=== PATIENT | male | born 1935 | race Two or more races ===

== ENCOUNTER 2021-03-03 12:08 | Inpatient (IN) | payer BC, MEDICARE ==
[2021-03-03] MEDS ORDERED: SODIUM CHLORIDE 0.9% 1,000 ML IV ONE (12:55)
--- NOTE | 2021-03-03 13:01 | ED ---
Fall HPI - General Source: EMS Mode of arrival: EMS <Mikey Chavis - Last Filed: 03/03/21 14:53> <Paddy Jorge - Last Filed: 03/03/21 17:07> - General Chief Complaint: Fall Stated Complaint: Fall Time Seen by Provider: 03/03/21 12:17 - History of Present Illness Initial Comments: 86-year-old male presents to emergency Department with a chief complaint of a fall. Patient reports incident occurred early this morning when he was attempt ing to get up after he was eating breakfast. Patient reports he stood up, felt lightheaded and went down to the ground injuring his head but denies any loss of consciousness. States she also fell on her right side of his body is complaining of pain in the right hip with limited range of motion in the right leg due to the pain. He denies any numbness or tingling. Patient is also diabetic and had an elevated blood sugar of 400 while in ambulance. (Mikey Chavis) - Related Data Home Medications Medication Instructions Recorded Confirmed Enalapril [Vasotec] 20 mg PO DAILY 03/03/21 03/03/21 Ferrous Sulfate [Feosol] 325 mg PO BID 03/03/21 03/03/21 HYDROcodone/APAP 5-325MG [[place] tab PO Q6H PRN 03/03/21 03/03/21 5-325] Meloxicam [Mobic] 15 mg PO DAILY PRN 03/03/21 03/03/21 Omeprazole 20 mg PO DAILY 03/03/21 03/03/21 Terazosin [Hytrin] 5 mg PO HS 03/03/21 03/03/21 amLODIPine [Norvasc] 5 mg PO DAILY 03/03/21 03/03/21 glipiZIDE [Glucotrol] 5 mg PO AC-BID 03/03/21 03/03/21 traMADol HCL 50 mg PO QID PRN 03/03/21 03/03/21 Allergies Allergy/AdvReac Type Severity Reaction Status Date / Time No Known Allergies Allergy Verified 03/03/21 13:45 Review of Systems ROS Other: All systems not noted in ROS Statement are negative. <Mikey Chavis - Last Filed: 03/03/21 14:53> ROS Other: All systems not noted in ROS Statement are negative. <Paddy Jorge - Last Filed: 03/03/21 17:07> ROS Statement: Those systems with pertinent positive or pertinent negative responses have been documented in the HPI. Past Medical History Past Medical History: Diabetes Mellitus, Hypertension, Rheumatoid Arthritis (RA) History of Any Multi-Drug Resistant Organisms: None Reported Past Surgical History: Appendectomy, Hernia Repair Past Psychological History: No Psychological Hx Reported Smoking Status: Former smoker Past Alcohol Use History: None Reported Past Drug Use History: None Reported <Mikey Chavis - Last Filed: 03/03/21 14:53> General Exam Limitations: no limitations General appearance: alert, in no apparent distress Head exam: Present: atraumatic, normocephalic, normal inspection. Absent: other (Negative Kapadia sign, raccoon eyes, hemotympanum.) Eye exam: Present: normal appearance, PERRL, EOMI Pupils: Present: normal accommodation ENT exam: Present: normal exam, normal oropharynx, mucous membranes dry, TM's normal bilaterally, normal external ear exam Neck exam: Present: normal inspection, full ROM. Absent: tenderness Respiratory exam: Present: normal lung sounds bilaterally. Absent: respiratory distress, wheezes, rales, rhonchi, stridor, chest wall tenderness, accessory muscle use Cardiovascular Exam: Present: regular rate, normal rhythm, normal heart sounds. Absent: systolic murmur GI/Abdominal exam: Present: soft. Absent: distended, tenderness, guarding Extremities exam: Present: normal inspection, tenderness (Right hip t enderness.), normal capillary refill, other (Palpable DP and PT bilaterally). Absent: full ROM (Limited range of motion right hip due to pain), pedal edema, joint swelling, calf tenderness Back exam: Present: normal inspection, full ROM Neurological exam: Present: alert, oriented X3 Psychiatric exam: Present: normal affect, normal mood Skin exam: Present: warm, dry, intact, normal color <Mikey Chavis - Last Filed: 03/03/21 14:53> Course <Paddy Jorge - Last Filed: 03/03/21 17:07> Vital Signs 03/03/21 03/03/21 03/03/21 12:14 13:53 16:13 Temperature 98.1 F Pulse Rate 90 80 78 Respiratory 16 16 16 Rate Blood Pressure 178/99 166/88 187/62 O2 Sat by Pulse 97 94 L 96 Oximetry - Reevaluation(s) Reevaluation #1: 03/03/21 16:46 Case was endorsed to me by practitioner Neri at 3 PM. Computed tomography scan was done. Report available at 1632. 03/03/21 17:07 Patient was reevaluated. Patient and family updated on results and plan. Case was discussed with Dr. Tanner, who will admit covering for orthopedic call. Dr. Vazquez also notified of consultation. (Paddy Jorge) Medical Decision Making - Lab Data Result diagrams: 03/03/21 12:59 03/03/21 12:59 <Mikey Chavis - Last Filed: 03/03/21 14:53> - Lab Data Result diagrams: 03/03/21 12:59 03/03/21 12:59 - Radiology Data Radiology results: report reviewed (Computed tomography scan shows no fracture dislocation of cervical spine. No acute intercranial hemorrhage. Computed tomography scan of the pelvis shows nondisplaced IT fracture right femur. Indeterminate right femoral/inguinal focal fluid collection 6 cm.), image reviewed (Right femur x-ray shows no fracture or dislocation. Question distortion inferior pubic rami in the left.) <Paddy Jorge - Last Filed: 03/03/21 17:07> - Medical Decision Making 86-year-old male presents to the emergency room with a chief complaint of fall. On physical examination, is neurovascularly intact in bilateral lower extremities. However, he has tenderness over the lateral aspect of her right hip with limited range of motion to the area as well. He also has dry mucous membranes leg was suggesting dehydration. Mild anemia with hemoglobin of 11. Elevated BUN of 21. Glucose 274. UA unremarkable. X-ray of the right hip shows no acute findings but radiology was suggesting a pelvic x-ray. Also, clinically the patient is quite tender over the right hip show I would like to obtain a CT. CT department was recommending pelvic CT which would also evaluate the hips as well. At this time, patient care signed off to Dr. Jorge. (Mikey Chavis) Patient reevaluated. Patient and family updated on results and plan. Dr. Watt has been paged for admission covering for orthopedic call. (Paddy Jorge) - Lab Data Lab Results 03/03/21 03/03/21 03/03/21 Range/Units 12:59 12:59 12:59 WBC 11.4 H (3.8-10.6) k/uL RBC 3.56 L (4.30-5.90) m/uL Hgb 11.0 L (13.0-17.5) gm/dL Hct 34.6 L (39.0-53.0) % MCV 97.1 (80.0-100.0) fL MCH 30.9 (25.0-35.0) pg MCHC 31.8 (31.0-37.0) g/dL RDW 13.4 (11.5-15.5) % Plt Count 285 (150-450) k/uL MPV 7.7 Neutrophils % 90 % Lymphocytes % 5 % Monocytes % 4 % Eosinophils % 0 % Basophils % 0 % Neutrophils # 10.3 H (1.3-7.7) k/uL Lymphocytes # 0.6 L (1.0-4.8) k/uL Monocytes # 0.4 (0-1.0) k/uL Eosinophils # 0.0 (0-0.7) k/uL Basophils # 0.0 (0-0.2) k/uL PT 10.5 (9.0-12.0) sec INR 1.0 (<1.2) APTT 25.4 (22.0-30.0) sec Sodium 133 L (137-145) mmol/L Potassium 4.4 (3.5-5.1) mmol/L Chloride 99 (98-107) mmol/L Carbon Dioxide 31 H (22-30) mmol/L Anion Gap 3 mmol/L BUN 23 H (9-20) mg/dL Creatinine 0.61 L (0.66-1.25) mg/dL Est GFR (CKD-EPI)AfAm >90 (>60 ml/min/1.73 sqM) Est GFR (CKD-EPI)NonAf 90 (>60 ml/min/1.73 sqM) Glucose 274 H (74-99) mg/dL Calcium 8.9 (8.4-10.2) mg/dL Total Bilirubin 0.1 L (0.2-1.3) mg/dL AST 21 (17-59) U/L ALT 15 (4-49) U/L Alkaline Phosphatase 105 (38-126) U/L Total Protein 6.5 (6.3-8.2) g/dL Albumin 3.4 L (3.5-5.0) g/dL Urine Color Urine Appearance (Clear) Urine pH (5.0-8.0) Ur Specific [place] (1.001-1.035) Urine Protein (Negative) Urine Glucose (UA) (Negative) Urine Ketones (Negative) Urine Blood (Negative) Urine Nitrite (Negative) Urine Bilirubin (Negative) Urine Urobilinogen (<2.0) mg/dL Ur Leukocyte Esterase (Negative) Acetone, Qual Negative (Negative) 03/03/21 Range/Units 12:59 WBC (3.8-10.6) k/uL RBC (4.30-5.90) m/uL Hgb (13.0-17.5) gm/dL Hct (39.0-53.0) % MCV (80.0-100.0) fL MCH (25.0-35.0) pg MCHC (31.0-37.0) g/dL RDW (11.5-15.5) % Plt Count (150-450) k/uL MPV Neutrophils % % Lymphocytes % % Monocytes % % Eosinophils % % Basophils % % Neutrophils # (1.3-7.7) k/uL Lymphocytes # (1.0-4.8) k/uL Monocytes # (0-1.0) k/uL Eosinophils # (0-0.7) k/uL Basophils # (0-0.2) k/uL PT (9.0-12.0) sec INR (<1.2) APTT (22.0-30.0) sec Sodium (137-145) mmol/L Potassium (3.5-5.1) mmol/L Chloride (98-107) mmol/L Carbon Dioxide (22-30) mmol/L Anion Gap mmol/L BUN (9-20) mg/dL Creatinine (0.66-1.25) mg/dL Est GFR (CKD-EPI)AfAm (>60 ml/min/1.73 sqM) Est GFR (CKD-EPI)NonAf (>60 ml/min/1.73 sqM) Glucose (74-99) mg/dL Calcium (8.4-10.2) mg/dL Total Bilirubin (0.2-1.3) mg/dL AST (17-59) U/L ALT (4-49) U/L Alkaline Phosphatase (38-126) U/L Total Protein (6.3-8.2) g/dL Albumin (3.5-5.0) g/dL Urine Color Yellow Urine Appearance Clear (Clear) Urine pH 6.5 (5.0-8.0) Ur Specific [place] 1.022 (1.001-1.035) Urine Protein Trace H (Negative) Urine Glucose (UA) 4+ H (Negative) Urine Ketones Negative (Negative) Urine Blood Negative (Negative) Urine Nitrite Negative (Negative) Urine Bilirubin Negative (Negative) Urine Urobilinogen <2.0 (<2.0) mg/dL Ur Leukocyte Esterase Negative (Negative) Acetone, Qual (Negative) - EKG Data EKG Comments: Sinus rhythm with PAC Ventricular rate 81, [place] 164 QRS 96, QTC 432. (Mikey Chavis) Disposition Is patient prescribed a controlled substance at d/c from ED?: No Time of Disposition: 14:55 <Mikey Chavis - Last Filed: 03/03/21 14:53> Is patient prescribed a controlled substance at d/c from ED?: No Decision Time: 16:46 <Paddy Jorge - Last Filed: 03/03/21 17:07> Clinical Impression: Fall, Injury of right hip, Dehydration, Intertrochanteric fracture of right femur Disposition: ADMITTED IP TO THIS HOSP Referrals: [facility],Clinic [Primary Care Provider] - 1-2 days
[2021-03-03 13:11] LABS: Appearance,Urine Clear (Clear); Basophils % (A) 0 %; Bilirubin,Urine Negative (Negative); Blood,Urine Negative (Negative); Color,Urine Yellow; Eosinophils % (A) 0 %; Glucose,Urine (UA) 4+ (Negative); HCT 34.6 % (39.0-53.0); Ketones,Urine Negative (Negative); Leukocyte Esterase,Urine Negative (Negative); Lymphocytes # (A) 0.6 k/uL (1.0-4.8); Lymphocytes % (A) 5 %; MCH 30.9 pg (25.0-35.0); MCHC 31.8 g/dL (31.0-37.0); MCV 97.1 fL (80.0-100.0); Mean Platelet Volume 7.7; Monocytes # (A) 0.4 k/uL (0-1.0); Monocytes % (A) 4 %; Neutrophils # (A) 10.3 k/uL (1.3-7.7); Neutrophils % (A) 90 %; Nitrite,Urine Negative (Negative); PH, Urine 6.5 (5.0-8.0); Platelet Count 285 k/uL (150-450); Protein,Urine Trace (Negative); RBC 3.56 m/uL (4.30-5.90); RDW 13.4 % (11.5-15.5); Specific Gravity,Urine 1.022 (1.001-1.035); Urobilinogen,Urine <2.0 mg/dL (<2.0); WBC 11.4 k/uL (3.8-10.6)
[2021-03-03 13:23] LABS: ALT 15 U/L (4-49); AST 21 U/L (17-59); African American GFR (CKD) >90 (>60 ml/min/1.73 sqM); Albumin 3.4 g/dL (3.5-5.0); Alkaline Phosphatase 105 U/L (38-126); Anion Gap 3 mmol/L; Blood Urea Nitrogen 23 mg/dL (9-20); Calcium 8.9 mg/dL (8.4-10.2); Carbon Dioxide 31 mmol/L (22-30); Chloride 99 mmol/L (98-107); Glucose 274 mg/dL (74-99); Non-African American GFR(CKD) 90 (>60 ml/min/1.73 sqM); Partial Thromboplastin Time 25.4 sec (22.0-30.0); Potassium 4.4 mmol/L (3.5-5.1); Prothrombin Time 10.5 sec (9.0-12.0); Sodium 133 mmol/L (137-145); Total Bilirubin 0.1 mg/dL (0.2-1.3); Total Protein 6.5 g/dL (6.3-8.2)
--- NOTE | 2021-03-03 13:43 | XR ---
Right femur HISTORY: Trauma and pain to right hip Frontal and lateral views of the right femur submitted on 5 images Bone mineralization is reduced. There are vascular calcifications present. Marked osteoarthritic prince ges present in the right knee, there is joint space loss, subchondral sclerosis and cystic geode form ation. Indeterminate metallic densities are present within the proximal soft tissues, there are overl manuel artifacts. Question some irregularity to the inferior pubic ramus on the left. IMPRESSION: No fracture or dislocation of the right hip. Question some distortion of the inferior pub ic ramus on the left, consider dedicated pelvis view. Indeterminate soft tissue densities.
[2021-03-03] MEDS ORDERED: MORPHINE SULFATE 2 MG/ML SYRINGE IVP ONE (13:49)
--- NOTE | 2021-03-03 13:52 | CT ---
EXAMINATION TYPE: CT brain mercedes gallegos DATE OF EXAM: 03/03/2021 COMPARISON: None HISTORY: fall CT DLP: 1273.5 mGycm Automated exposure control for dose reduction was used. TECHNIQUE: CT scan of the head and cervical spine are performed without contrast. FINDINGS: There is no acute intracranial hemorrhage, mass effect, or midline shift identified. The ventricles and sulci are within normal limits in size. The globes are intact and the visualized sin uses are clear. Periventricular white matter shows patchy low attenuation. There is cortical atrophy. There are cerebral vascular calcifications. Cervical spine is visualized in its entirety from C1 through upper thoracic levels and demonstrates s atisfactory alignment without evidence of acute fracture or dislocation. Prevertebral soft tissue ap pears within normal limits. The C1-C2 articulation is unremarkable. There is a spinal curvature. Mu ltilevel spondylosis is present. There is loss of disc height greatest at C4-5, C5-6 and C6-7. Multil evel vacuum disc phenomenon present at intervertebral levels. Is multilevel facet arthropathy and fanny ral foraminal encroachment. There is apical pleural thickening, interstitial changes within the lungs IMPRESSION: 1. There is no acute fracture or dislocation evident in the cervical spine. 2. No acute intracranial hemorrhage, mass effect, or midline shift is seen, there is age-related prince ges of atrophy and chronic small vessel ischemia. 3. Additional findings above.
--- NOTE | 2021-03-03 16:32 | CT ---
EXAMINATION TYPE: CT pelvis wo con DATE OF EXAM: 03/03/2021 COMPARISON: Right femur radiograph 03/03/2021 HISTORY: Right hip pain, fall CT DLP: 449.6 mGycm Automated exposure control for dose reduction was used. FINDINGS: There is decreased osseous mineralization. There is a nondisplaced right intertrochanteric fracture d eformity of the right femur. There are degenerative changes of the bilateral hips, left much greater than right. The left hip demonstrates bone on bone contact, sclerotic changes, and large subchondral cysts. Degenerative changes of the spine. Extensive calcified vascular atherosclerotic disease. There is a focal fluid collection of the right femoral region measuring approximately 6.0 x 4.3 x 10.1 cm. No lymphadenopathy. IMPRESSION: 1. NONDISPLACED INTERTROCHANTERIC FRACTURE DEFORMITY OF THE RIGHT FEMUR. 2. DECREASED OSSEOUS MINERALIZATION. 3. DEGENERATIVE CHANGES OF THE BILATERAL HIPS, MARKED ON THE LEFT WITH EXTENSIVE SUBCHONDRAL CYSTS. 4. INDETERMINATE RIGHT FEMORAL/INGUINAL FOCAL FLUID COLLECTION MEASURES 6.0 X 4.3 X 10.1 CM. INITIAL FOLLOW-UP COULD BE PERFORMED WITH RIGHT INGUINAL ULTRASOUND.
[2021-03-03] MEDS ORDERED: NALOXONE 0.4 MG/ML 1 ML VIAL IV PRN (17:07)
[2021-03-03] MEDS ORDERED: HYDROmorphone 1 MG/ML 1 ML SYRINGE IVP PRN (17:07)
[2021-03-03] MEDS ORDERED: KETOROLAC 15 MG/ML 1 ML VIAL IVP PRN (17:27)
[2021-03-03] MEDS ORDERED: ACETAMINOPHEN TAB 325 MG TAB PO PRN (17:29)
[2021-03-03] MEDS ORDERED: LACTULOSE 20 GM/30 ML CUP PO PRN (17:33)
[2021-03-03] MEDS: HYDROmorphone 0.5 MG/0.5 ML SYRINGE IVP PRN ×2 (17:39→21:59)
--- NOTE | 2021-03-03 17:43 | P.CONS ---
History of Present Illness - Reason for Consult Preoperative clearance - History of Present Illness 86-year-old male presents to emergency Department with a chief complaint of a fall. Patient reports incident occurred early this morning when he was attempting to get up after he was eating breakfast. Patient reports he stood up, felt lightheaded and went down to the ground injuring his head but denies a ny loss of consciousness. States she also fell on her right side of his body is complaining of pain in the right hip with limited range of motion in the right leg due to the pain. Patient had a CT of the spine and neck which showed was essentially within normal limits except for some chronic microvascular ischemic changes. Patient had a CT of the pelvis and lower extremities which showed a nondisplaced intertrochanteric fracture the right femur and significant degenerative changes in bilateral hips and there is some indeterminate right femoral inguinal fluid which appears to be hernia. Patient has mild hyponatremia denied any diarrhea usually gets constipated. Patient denied any chest pain denied denied any history of congestive heart failure. For all the patient has a significant murmur in the aortic area. Patient may have electrolysis. Patient had an EKG which showed some nonspecific ST-T wave changes in the lateral leads because of which I'm opting an echocardiogram patient functionality is is bit poor uses wheelchair, walker as well as a came for ablation. Patient does have significant osteoarthritis as well as rheumatoid arthritis. Patient is supposed to see a yarding and folding machine operator as an outpatient. Patient denied any fever chills. Review of Systems REVIEW OF SYSTEMS: CONSTITUTIONAL: No fever, no malaise, no fatigue. HEENT: No recent visual problems or hearing problems. Denied any sore throat. CARDIOVASCULAR: No chest pain, orthopnea, PND, no palpitations, no syncope. PULMONARY: No shortness of breath, no cough, no hemoptysis. GASTROINTESTINAL: No diarrhea, no nausea, no vomiting, no abdominal pain. NEUROLOGICAL: No headaches, no weakness, no numbness. HEMATOLOGICAL: Denies any bleeding or petechiae. GENITOURINARY: Denies any burning micturition, frequency, or urgency. MUSCULOSKELETAL/RHEUMATOLOGICAL: As mentioned in HPI ENDOCRINE: Denies any polyuria or polydipsia. The rest of the 14-point review of systems is negative. Past Medical History Past Medical History: Diabetes Mellitus, Hypertension, Rheumatoid Arthritis (RA) History of Any Multi-Drug Resistant Organisms: None Reported Past Surgical History: Appendectomy, Hernia Repair Past Psychological History: No Psychological Hx Reported Smoking Status: Former smoker Past Alcohol Use History: None Reported Past Drug Use History: None Reported Medications and Allergies Home Medications Medication Instructions Recorded Confirmed Type Enalapril [Vasotec] 20 mg PO DAILY 03/03/21 03/03/21 History Ferrous Sulfate [Feosol] 325 mg PO BID 03/03/21 03/03/21 History HYDROcodone/APAP 5-325MG [[place] 1 tab PO Q6H PRN 03/03/21 03/03/21 History 5-325] Meloxicam [Mobic] 15 mg PO DAILY PRN 03/03/21 03/03/21 History Omeprazole 20 mg PO DAILY 03/03/21 03/03/21 History Terazosin [Hytrin] 5 mg PO HS 03/03/21 03/03/21 History amLODIPine [Norvasc] 5 mg PO DAILY 03/03/21 03/03/21 History glipiZIDE [Glucotrol] 5 mg PO AC-BID 03/03/21 03/03/21 History traMADol HCL 50 mg PO QID PRN 03/03/21 03/03/21 History Allergies Allergy/AdvReac Type Severity Reaction Status Date / Time No Known Allergies Allergy Verified 03/03/21 13:45 Physical Exam Vitals: Vital Signs Temp Pulse Resp BP Pulse Ox 03/03/21 16:13 78 16 187/62 96 03/03/21 13:53 80 16 166/88 94 L 03/03/21 12:14 98.1 F 90 16 178/99 97 Intake and Output 03/03/21 03/03/21 03/03/21 06:59 14:59 22:59 Other: Weight 59.693 kg PHYSICAL EXAMINATION: GENERAL: The patient is alert and oriented x3, not in any acute distress. Well developed, well nourished. HEENT: Pupils are round and equally reacting to light. EOMI. No scleral icterus. No conjunctival pallor. Normocephalic, atraumatic. No pharyngeal erythema. No thyromegaly. CARDIOVASCULAR: S1 and S2 present. No rubs, or gallops. Systolic murmur and aortic area PULMONARY: Chest is clear to auscultation, no wheezing or crackles. ABDOMEN: Soft, nontender, nondistended, normoactive bowel sounds. No palpable organomegaly. MUSCULOSKELETAL: No joint swelling she does have multiple deformities in the small joint in bilateral upper extremity is as well as lower extremity secondary to rheumatoid arthritis EXTREMITIES: No cyanosis, clubbing, or pedal edema. NEUROLOGICAL: Gross neurological examination did not reveal any focal deficits. SKIN: No rashes. Results CBC & Chem 7: 03/03/21 12:59 03/03/21 12:59 Labs: Abnormal Lab Results - Last 24 Hours (Table) 03/03/21 03/03/21 03/03/21 Range/Units 12:59 12:59 12:59 WBC 11.4 H (3.8-10.6) k/uL RBC 3.56 L (4.30-5.90) m/uL Hgb 11.0 L (13.0-17.5) gm/dL Hct 34.6 L (39.0-53.0) % Neutrophils # 10.3 H (1.3-7.7) k/uL Lymphocytes # 0.6 L (1.0-4.8) k/uL Sodium 133 L (137-145) mmol/L Carbon Dioxide 31 H (22-30) mmol/L BUN 23 H (9-20) mg/dL Creatinine 0.61 L (0.66-1.25) mg/dL Glucose 274 H (74-99) mg/dL Total Bilirubin 0.1 L (0.2-1.3) mg/dL Albumin 3.4 L (3.5-5.0) g/dL Urine Protein Trace H (Negative) Urine Glucose (UA) 4+ H (Negative) Assessment and Plan Plan: -Preoperative clearance for nondisplaced right intertrochanteric fracture: Patient is low to intermediate risk for surgery since the surgery improves the functionality patient should go for surgery same thing was informed to the patient. We will obtain an echocardiogram considering that he has a significant murmur and aortic area and some nonspecific ST-T wave changes. We'll consult cardiology for preoperative clearance. -Lightheadedness near-syncope: Secondary to intravascular depletion from, from dehydration patient was started on IV fluids echocardiogram will be obtained as well since he has a significant and systolic murmur. -Hypovolemic hyponatremia IV fluids as mentioned above. There is also competent of pseudohypernatremia from hyperglycemia -Severe rheumatoid arthritis -Osteoarthritis -Type 2 diabetes mellitus with uncontrolled elevated blood sugars patient was started on long-acting insulin as well as siding scale insulin hold off on oral hypoglycemic agents. -DVT prophylaxis with Lovenox
--- NOTE | 2021-03-03 18:16 | US ---
EXAMINATION TYPE: US groin RT DATE OF EXAM: 03/03/2021 COMPARISON: NONE CLINICAL HISTORY: fluid collection ? hernia. fluid collection right groin visualized on recent CT. F all, right hip pain. right femur fracture. history of hernia mesh 2014 mixed area with solid component and small amount of fluid right groin = 11.2 x 5.0 x 6.4cm, no vascul arity or peristalsing noted at this time. no changes with valsalva. IMPRESSION: Complex large inguinal fluid collection not changed in size compared to the CT scan 3 glenda rs ago. No peristalsis seen. This could be a complex synovial cyst arising from the right hip joint.
[2021-03-03] MEDS: INSULIN ASPART (NovoLOG) 100 UNIT/ML VIAL SQ SCH ×2 (18:45→22:01)
--- NOTE | 2021-03-03 21:07 | P.HPOR ---
History of Present Illness H&P Date: 03/03/21 Chief Complaint: Right hip pain This is an 86-year-old gentleman who presents to the emergency department today with complaint of right hip pain. He reportedly went to get up from his chair today and felt dizzy, causing him to fall to the ground. He states that he did hit his head on the floor when he fell. Upon arrival to the emergency department he was evaluated and had CT of the head and neck which showed no acute abnormalities other than age-related vascular changes. CT of the pelvis reveals a nondisplaced intertrochanteric fracture of the right hip. He is admi tted to our service for surgical intervention and care. The patient has history of rheumatoid arthritis and uses a wheeled walker for ambulation. Past Medical History Past Medical History: Diabetes Mellitus, Hypertension, Rheumatoid Arthritis (RA) History of Any Multi-Drug Resistant Organisms: None Reported Past Surgical History: Appendectomy, Hernia Repair Past Psychological History: No Psychological Hx Reported Smoking Status: Former smoker Past Alcohol Use History: None Reported Past Drug Use History: None Reported Medications and Allergies Home Medications Medication Instructions Recorded Confirmed Type Enalapril [Vasotec] 20 mg PO DAILY 03/03/21 03/03/21 History Ferrous Sulfate [Feosol] 325 mg PO BID 03/03/21 03/03/21 History HYDROcodone/APAP 5-325MG [[place] 1 tab PO Q6H PRN 03/03/21 03/03/21 History 5-325] Meloxicam [Mobic] 15 mg PO DAILY PRN 03/03/21 03/03/21 History Omeprazole 20 mg PO DAILY 03/03/21 03/03/21 History Terazosin [Hytrin] 5 mg PO HS 03/03/21 03/03/21 History amLODIPine [Norvasc] 5 mg PO DAILY 03/03/21 03/03/21 History glipiZIDE [Glucotrol] 5 mg PO AC-BID 03/03/21 03/03/21 History traMADol HCL 50 mg PO QID PRN 03/03/21 03/03/21 History Allergies Allergy/AdvReac Type Severity Reaction Status Date / Time No Known Allergies Allergy Verified 03/03/21 13:45 Physical Examination This is a pleasant 78-year-old gentleman in no acute distress. He is alert and oriented 3. Exam of the head and neck reveal no obvious deformity. He has f ull cervical spine motion without difficulty or pain. There is no pain on palpation of the cervical spine or paraspinal musculature. Exam of the upper extremities reveals rheumatoid type deformities to the hand and fingers. He has limited range of motion of the shoulders, elbows and fingers. No traumatic deformities noted. Exam of the lower extremities reveals external rotation to the right leg. 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 He has fairly good foot and ankle motion. Pedal pulse +2/4. Neurovascular status to the lower extremity is intact. Results CT of head and neck reveal no acute bony abnormality or fracture. No radiographic evidence of trauma to the brain. CT of the pelvis reveals a nondisplaced intertrochanteric fracture of the right hip. No other bony abnormality noted. - Labs Labs: Abnormal Lab Results - Last 24 Hours (Table) 03/03/21 03/03/21 03/03/21 Range/Units 12:59 12:59 12:59 WBC 11.4 H (3.8-10.6) k/uL RBC 3.56 L (4.30-5.90) m/uL Hgb 11.0 L (13.0-17.5) gm/dL Hct 34.6 L (39.0-53.0) % Neutrophils # 10.3 H (1.3-7.7) k/uL Lymphocytes # 0.6 L (1.0-4.8) k/uL Sodium 133 L (137-145) mmol/L Carbon Dioxide 31 H (22-30) mmol/L BUN 23 H (9-20) mg/dL Creatinine 0.61 L (0.66-1.25) mg/dL Glucose 274 H (74-99) mg/dL Total Bilirubin 0.1 L (0.2-1.3) mg/dL Albumin 3.4 L (3.5-5.0) g/dL Urine Protein Trace H (Negative) Urine Glucose (UA) 4+ H (Negative) H & H 03/03/21 Range/Units 12:59 Hgb 11.0 L (13.0-17.5) gm/dL Hct 34.6 L (39.0-53.0) % Coagulation 03/03/21 Range/Units 12:59 INR 1.0 (<1.2) Result Diagrams: 03/03/21 12:59 03/03/21 12:59 Assessment and Plan (1) Fall Current Visit: Yes Status: Acute Code(s): W19.XXXA - UNSPECIFIED FALL, INITIAL ENCOUNTER SNOMED Code(s): 3788233 (2) Injury of right hip Current Visit: Yes Status: Acute Code(s): S79.911A - UNSPECIFIED INJURY OF RIGHT HIP, INITIAL ENCOUNTER SNOMED Code(s): 107642154 (3) Intertrochanteric fracture of right femur Current Visit: Yes Status: Acute Code(s): S72.141A - DISPLACED INTERTROCHANTERIC FRACTURE OF RIGHT FEMUR, INIT SNOMED Code(s): 956460541 Plan: The clinical and x-ray findings are discussed with the patient. It is recommen ded he undergo closed reduction with insertion of intertrochanteric nail of the right hip. The procedures discussed with the patient clean the possible risks and outcomes of surgery. He will most likely be a candidate for inpatient rehabilitation postoperatively. We are planning surgery tomorrow if cleared medically and cleared with cardiology.
[2021-03-03 21:47] LABS: Glucose,Whole Blood 202 mg/dL (75-99)
[2021-03-03] MEDS: FAMOTIDINE 20 MG TAB PO SCH (22:01)
[2021-03-03] MEDS: SODIUM CHLORIDE 0.9% 1,000 ML IV SCH ×2 (22:01→22:14)
[2021-03-03] MEDS: INSULIN DETEMIR (LEVEMIR) 100 UNIT/ML SYR SQ SCH (22:01)
[2021-03-03] MEDS: DOXAZOSIN 4 MG TAB PO SCH (22:09)
[2021-03-03] MEDS: amLODIPine 5 MG TAB PO SCH (22:09)
[2021-03-04] MEDS: traMADol 50 MG TAB PO PRN ×2 (01:17→15:57)
[2021-03-04] MEDS: SODIUM CHLORIDE 0.9% 1,000 ML IV SCH ×3 (06:50→16:36)
[2021-03-04 07:36] LABS: Glucose,Whole Blood 147 mg/dL (75-99)
[2021-03-04 07:50] LABS: HCT 31.1 % (39.0-53.0); HGB 10.5 gm/dL (13.0-17.5); MCH 32.4 pg (25.0-35.0); MCHC 33.8 g/dL (31.0-37.0); Mean Platelet Volume 7.3; Platelet Count 235 k/uL (150-450); RBC 3.24 m/uL (4.30-5.90); RDW 13.1 % (11.5-15.5); WBC 6.9 k/uL (3.8-10.6)
[2021-03-04] MEDS: INSULIN ASPART (NovoLOG) 100 UNIT/ML VIAL SQ SCH ×4 (09:48→21:58)
[2021-03-04] MEDS: HYDROmorphone 0.5 MG/0.5 ML SYRINGE IVP PRN ×2 (10:26→22:01)
[2021-03-04] MEDS: ENOXAPARIN 40 MG/0.4 ML SYRINGE SQ SCH ×2 (10:37→12:40)
[2021-03-04] MEDS: amLODIPine 5 MG TAB PO SCH ×2 (10:58→12:40)
[2021-03-04] MEDS: FAMOTIDINE 20 MG TAB PO SCH ×3 (10:58→21:57)
[2021-03-04 11:35] LABS: Anion Gap 4.9 mmol/L (4.00-12.00); BUN/Creat Ratio 26.67 Ratio (12.00-20.00); Calcium 8.4 mg/dL (8.7-10.3); Carbon Dioxide 26.1 mmol/L (21.6-31.8); Non-African American GFR(CKD) 89.8 (60.0-200.0); Potassium 4.4 mmol/L (3.5-5.5)
--- NOTE | 2021-03-04 12:05 | ECHOF ---
Referral Reason:Preoperative clearance MEASUREMENTS -------- HEIGHT: 182.9 cm WEIGHT: 56.7 kg BP: 125/52 RVIDd: 3.4 cm (< 3.3) IVSd: 1.2 cm (0.6 - 1.1) LVIDd: 4.7 cm (3.9 - 5.3) LVPWd: 1.0 cm (0.6 - 1.1) IVSs: 2.0 cm LVIDs: 2.6 cm LVPWs: 1.8 cm LAESV Index (A-L): 49.45 ml/m Ao Diam: 3.3 cm (2.0 - 3.7) AV Cusp: 1.1 cm (1.5 - 2.6) MV EXCURSION: 9.081 mm (> 18.000) MV EF SLOPE: 88 mm/s (70 - 150) EPSS: 2.1 cm MV E Lux: 1.30 m/s MV DecT: 231 ms MV A Lux: 1.11 m/s MV E/A Ratio: 1.17 AV maxP.22 mmHg AV meanP.69 mmHg AR PHT: 471 ms RAP: 5.00 mmHg RVSP: 55.48 mmHg FINDINGS -------- Sinus rhythm. This was a technically adequate study. The left ventricular size is normal. There is mild concentric left ventricular hypertrophy. Overa ll left ventricular systolic function is normal with, an EF between 55 - 60 %. The right ventricle is mildly enlarged. LA is severely dilated >40 ml/m2 The right atrium is mildly enlarged. Interatrial and interventricular septum intact. Trace to mild aortic regurgitation. There is moderate aortic stenosis present. Peak/mean gradient across the Aortic Valve is 45.22mmHg / 23.69mmHg. Severe mitral annular calcification present. Moderate mitral regurgitation is present. Moderate tricuspid regurgitation present. There is moderate to severe pulmonary hypertension. The right ventricular systolic pressure, as measured by Doppler, is 55.48mmHg. Trace/mild (physiologic) pulmonic regurgitation. The aortic root size is normal. Normal inferior vena cava with normal inspiratory collapse consistent with estimated right atrial pre ssure of 5 mmHg. There is no pericardial effusion. CONCLUSIONS -------- 1. The left ventricular size is normal. 2. There is mild concentric left ventricular hypertrophy. 3. Overall left ventricular systolic function is normal with, an EF between 55 - 60 %. 4. The right ventricle is mildly enlarged. 5. LA is severely dilated >40 ml/m2 6. The right atrium is mildly enlarged. 7. Trace to mild aortic regurgitation. 8. There is moderate aortic stenosis present. 9. Peak/mean gradient across the Aortic Valve is 45.22mmHg / 23.69mmHg. 10. Severe mitral annular calcification present. 11. Moderate mitral regurgitation is present. 12. Moderate tricuspid regurgitation present. 13. There is moderate to severe pulmonary hypertension. 14. The right ventricular systolic pressure, as measured by Doppler, is 55.48mmHg. 15. Trace/mild (physiologic) pulmonic regurgitation. CARTRIDGE LOADER: Keri Sutherland RDCS
[2021-03-04 12:09] LABS: Glucose,Whole Blood 162 mg/dL (75-99)
--- NOTE | 2021-03-04 13:31 | P.CRDCN ---
History of Present Illness History of present illness: HISTORY OF PRESENTING ILLNESS This is a pleasant 86-year-old male past medical history significant for hypertension, diabetes mellitus, skin cancer and gastroesophageal reflux disease. He denies prior history of coronary artery disease and does not follow regularly with a field trainer. We have been asked to see in consultation for preoperative evaluation. He presented to the hospital yesterday after suffering a fall at home with verbalized right hip pain. He states he was getting up after eating breakfast and he uses a walker. He was walking to the kitchen when he's became acutely lightheaded and weak and fell. He denies syncope. He had no chest pain or shortness of breath. He states on a regular basis he does not have symptoms of exertional chest pain. At times he feels short of breath with exertion. DIAGNOSTICS EKG reveals sinus mechanism with PACs, poor R-wave progression and nonspecific abnormalities noted in the lateral leads. Echocardiogram obtained reveals preserved LV systolic function with ejection fraction 55-60%, severely dilated left atrium, mildly enlarged right atrium, moderate aortic stenosis with a mean gradient of 23 mmHg, moderate mitral regurgitation, moderate tricuspid regurgitation and moderate to severe pulmonary retention with an RVSP of 55 mmHg. Laboratory reviewed, WBC 6.9, hemoglobin 10.5, platelets 235, sodium 133, potassium 4.4, creatinine 0.6. Current cardiac medications include enalapril 20 mg daily and amlodipine 5 mg daily. REVIEW OF SYSTEMS At the time of my exam: CONSTITUTIONAL: Denies fever or chills. CARDIOVASCULAR: Denies chest pain, shortness of breath, orthopnea, PND or palpitations. RESPIRATORY: Denies cough. GASTROINTESTINAL: Denies abdominal pain, diarrhea, constipation, nausea or vomiting. MUSCULOSKELETAL: Denies myalgias. NEUROLOGIC: Denies numbness, tingling, headacbe or weakness. ENDOCRINE: Denies fatigue, weight change, polydipsia or polyurina. GENITOURINARY: Denies burning, hematuria or urgency with micturation. HEMATOLOGIC: Denies history of anemia or bleeding. PHYSICAL EXAMINATION Blood pressure 134/67 heart rate 72 afebrile and maintaining oxygen saturation on room air. CONSTITUTIONAL: No apparent distress. Frail. HEENT: Head is normocephalic. Pupils are equal, round. Sclerae anicteric. Mucous membranes of the mouth are moist. No JVD. No carotid bruit. CHEST EXAMINATION: Lungs are clear to auscultation. No chest wall tenderness is noted on palpation or with deep breathing. HEART EXAMINATION: Regular rate and rhythm. S1, S2 heard. Systolic ejection murmur at the base, no gallops or rub. ABDOMEN: Soft, nontender. Positive bowel sounds. EXTREMITIES: 2+ peripheral pulses, no lower extremity edema and no calf tenderness. NEUROLOGIC EXAMINATION: Patient is awake, alert and oriented x3. ASSESSMENT Fall, no syncope Right hip fracture Aortic stenosis Mitral regurgitation Hypertension Diabetes mellitus PLAN On exam clinically the patient is euvolemic with no symptoms of acute heart failure or angina. He is high risk to undergo surgical intervention however there is no immediate acute contraindications. Recommend cautious fluid administration and optimal blood pressure control. Thank you kindly for this consultation. Nurse Practitioner note has been reviewed, I agree with a documented findings and plan of care. Patient was seen and examined. Past Medical History Past Medical History: Cancer, Diabetes Mellitus, GERD/Reflux, Hypertension, Rheumatoid Arthritis (RA) Additional Past Medical History / Comment(s): skin cancer removed on right forehead, currently behind both ears. History of Any Multi-Drug Resistant Organisms: None Reported Past Surgical History: Adenoidectomy, Appendectomy, Hernia Repair, Tonsillectomy Additional Past Surgical History / Comment(s): cataract surgery with aspen lens implants Past Anesthesia/Blood Transfusion Reactions: No Reported Reaction Past Psychological History: No Psychological Hx Reported Smoking Status: Former smoker Past Alcohol Use History: None Reported Past Drug Use History: None Reported - Past Family History Son(s) Additional Family Medical History / Comment(s): smoker Brother(s) Family Medical History: Osteoarthritis (OA) Medications and Allergies Home Medications Medication Instructions Recorded Confirmed Type Enalapril [Vasotec] 20 mg PO DAILY 03/03/21 03/03/21 History Ferrous Sulfate [Feosol] 325 mg PO BID 03/03/21 03/03/21 History HYDROcodone/APAP 5-325MG [[place] 1 tab PO Q6H PRN 03/03/21 03/03/21 History 5-325] Meloxicam [Mobic] 15 mg PO DAILY PRN 03/03/21 03/03/21 History Omeprazole 20 mg PO DAILY 03/03/21 03/03/21 History Terazosin [Hytrin] 5 mg PO HS 03/03/21 03/03/21 History amLODIPine [Norvasc] 5 mg PO DAILY 03/03/21 03/03/21 History glipiZIDE [Glucotrol] 5 mg PO AC-BID 03/03/21 03/03/21 History traMADol HCL 50 mg PO QID PRN 03/03/21 03/03/21 History Allergies Allergy/AdvReac Type Severity Reaction Status Date / Time No Known Allergies Allergy Verified 03/03/21 13:45 Physical Exam Vitals: Vital Signs Temp Pulse Pulse Resp BP BP Pulse Ox 03/04/21 05:51 97.9 F 71 16 125/52 95 03/03/21 21:25 74 20 144/65 97 03/03/21 21:21 98.8 F 74 18 158/58 95 03/03/21 17:44 72 16 158/62 99 03/03/21 17:42 75 16 158/68 96 03/03/21 16:13 78 16 187/62 96 03/03/21 13:53 80 16 166/88 94 L 03/03/21 12:14 98.1 F 90 16 178/99 97 Intake and Output 03/03/21 03/04/21 03/04/21 22:59 06:59 14:59 Output Total 300 Balance -300 Output: Urine 300 Other: Voiding Method Urinal Weight 57 kg Results 03/04/21 06:51 03/04/21 06:51 Cardiac Enzymes 03/03/21 Range/Units 12:59 AST 21 (17-59) U/L Coagulation 03/03/21 Range/Units 12:59 PT 10.5 (9.0-12.0) sec APTT 25.4 (22.0-30.0) sec CBC 03/03/21 03/04/21 Range/Units 12:59 06:51 WBC 11.4 H 6.9 (3.8-10.6) k/uL RBC 3.56 L 3.24 L (4.30-5.90) m/uL Hgb 11.0 L 10.5 L (13.0-17.5) gm/dL Hct 34.6 L 31.1 L (39.0-53.0) % Plt Count 285 235 (150-450) k/uL Comprehensive Metabolic Panel 03/03/21 Range/Units 12:59 Sodium 133 L (137-145) mmol/L Potassium 4.4 (3.5-5.1) mmol/L Chloride 99 (98-107) mmol/L Carbon Dioxide 31 H (22-30) mmol/L BUN 23 H (9-20) mg/dL Creatinine 0.61 L (0.66-1.25) mg/dL Glucose 274 H (74-99) mg/dL Calcium 8.9 (8.4-10.2) mg/dL AST 21 (17-59) U/L ALT 15 (4-49) U/L Alkaline Phosphatase 105 (38-126) U/L Total Protein 6.5 (6.3-8.2) g/dL Albumin 3.4 L (3.5-5.0) g/dL Current Medications Generic Name Dose Route Start Last Admin Trade Name Freq PRN Reason Stop Dose Admin Acetaminophen 650 mg 03/03/21 17:29 Acetaminophen Tab 325 Mg Tab PO Q6HR PRN Fever and/ or Mild Pain Amlodipine Besylate 5 mg 03/03/21 17:30 03/03/21 22:09 Amlodipine 5 Mg Tab PO Not Given DAILY MARIUM Doxazosin Mesylate 4 mg 03/03/21 21:00 03/03/21 22:09 Doxazosin 4 Mg Tab PO 4 mg HS MARIUM Administration Enoxaparin Sodium 40 mg 03/04/21 09:00 Enoxaparin 40 Mg/0.4 Ml Syringe SQ DAILY MARIUM Famotidine 20 mg 03/03/21 21:00 03/03/21 22:01 Famotidine 20 Mg Tab PO 20 mg BID MARIUM Administration Hydromorphone HCl 0.5 mg 03/03/21 17:07 03/03/21 21:59 Hydromorphone 0.5 Mg/0.5 Ml Syringe IVP 0.5 mg Q3HR PRN Administration Moderate Pain Sodium Chloride 1,000 mls @ 20 mls/hr 03/03/21 17:15 03/03/21 22:14 Saline 0.9% IV Not Given .Q24H MARIUM Sodium Chloride 1,000 mls @ 100 mls/hr 03/03/21 17:30 03/04/21 06:50 Saline 0.9% IV Not Given .Q10H MARIUM Insulin Aspart 0 unit 03/03/21 17:30 03/03/21 22:01 Insulin Aspart (Novolog) 100 Unit/Ml Vial SQ Not Given ACHS [facility] Protocol Insulin Detemir 10 unit 03/03/21 21:00 03/03/21 22:01 Insulin Detemir (Levemir) 100 Unit/Ml Syr SQ Not Given HS [facility] Ketorolac Tromethamine 15 mg 03/03/21 17:27 Ketorolac 15 Mg/Ml 1 Ml Vial IVP 03/08/21 17:28 Q6HR PRN Pain Lactulose 20 gm 03/03/21 17:33 Lactulose 20 Gm/30 Ml Cup PO BID PRN Constipation Naloxone HCl 0.2 mg 03/03/21 17:07 Naloxone 0.4 Mg/Ml 1 Ml Vial IV Q2M PRN Opioid Reversal Tramadol HCl 50 mg 03/03/21 17:28 03/04/21 01:17 Tramadol 50 Mg Tab PO 50 mg QID PRN Administration Pain Intake and Output 03/03/21 03/04/21 03/04/21 22:59 06:59 14:59 Output Total 300 Balance -300 Output: Urine 300 Other: Voiding Method Urinal Weight 57 kg 03/04/21 06:51 03/03/21 12:59
[2021-03-04 13:48] VITALS: BMI 17.0
--- NOTE | 2021-03-04 16:08 | P.PN ---
Subjective Progress Note Date: 03/04/21 - Reason for Consult Preoperative clearance - History of Present Illness 86-year-old male presents to emergency Department with a chief complaint of a fa ll. Patient reports incident occurred early this morning when he was attempting to get up after he was eating breakfast. Patient reports he stood up, felt lightheaded and went down to the ground injuring his head but denies any loss of consciousness. States she also fell on her right side of his body is complaining of pain in the right hip with limited range of motion in the right leg due to the pain. Patient had a CT of the spine and neck which showed was essentially within normal limits except for some chronic microvascular ischemic changes. Patient had a CT of the pelvis and lower extremities which showed a nondisplaced intertrochanteric fracture the right femur and significant degen erative changes in bilateral hips and there is some indeterminate right femoral inguinal fluid which appears to be hernia. Patient has mild hyponatremia denied any diarrhea usually gets constipated. Patient denied any chest pain denied denied any history of congestive heart failure. For all the patient has a significant murmur in the aortic area. Patient may have electrolysis. Patient had an EKG which showed some nonspecific ST-T wave changes in the lateral leads because of which I'm opting an echocardiogram patient functionality is is bit poor uses wheelchair, walker as well as a came for ablation. Patient does have significant osteoarthritis as well as rheumatoid arthritis. Patient is supposed to see a beef selector as an outpatient. Patient denied any fever chills. 03/04/2021 Patient is seen and evaluated and is awaiting for surgical clearance of the right hip and is being followed closely by orthopedic surgery. Patient was seen and evaluated by cardiology and underwent a 2-D echo showing overall left ventricular systolic function is normal with an EF between 55 and 60% of note the LAD is severely dilated and the right atrium is mildly enlarged with some moderate aortic stenosis present along with moderate mitral and tricuspid regurgitation present along with moderate to severe pulmonary hypertension. Hemoglobin is stable at 10.5, sodium is 133 with a potassium of 4.4 current creatinine is 0.6. Continue Accu-Cheks before meals and at bedtime and continue to monitor blood sugars closely. Patient is tentatively scheduled for surgery in the morning with Dr. Tanner. Review of systems: Constitutional: No reports of fatigue, fever, or chills Cardiovascular: No reports of chest pain or palpitations Respiratory: No reports of shortness of breath or cough GI: No reports of nausea, vomiting, or diarrhea : No reports of dysuria or retention Neurovascular: Reports generalized weakness and continued right hip discomfort All medications have been reviewed Objective - Vital Signs Vital signs: Vital Signs Temp 97.9 F 03/04/21 05:51 Pulse 72 03/04/21 10:46 Resp 16 03/04/21 05:51 BP 134/67 03/04/21 10:46 Pulse Ox 95 03/04/21 05:51 Intake & Output 03/03/21 03/04/21 03/04/21 18:59 06:59 18:59 Output Total 300 Balance -300 Weight 59.693 kg 57 kg 57 kg Output: Urine 300 Other: Voiding Method Urinal - Exam GENERAL: The patient is alert and oriented x3, not in any acute distress. Well developed, well nourished. HEENT: Pupils are round and equally reacting to light. EOMI. No scleral icterus. No conjunctival pallor. Normocephalic, atraumatic. No pharyngeal erythema. No thyromegaly. CARDIOVASCULAR: S1 and S2 present. No rubs, or gallops. Systolic murmur and aortic area PULMONARY: Chest is clear to auscultation, no wheezing or crackles. ABDOMEN: Soft, nontender, nondistended, normoactive bowel sounds. No palpable organomegaly. MUSCULOSKELETAL: No joint swelling patient does have multiple deformities in the small joint in bilateral upper extremity is as well as lower extremity secondary to rheumatoid arthritis EXTREMITIES: No cyanosis, clubbing, or pedal edema. NEUROLOGICAL: Gross neurological examination did not reveal any focal deficits. SKIN: No rashes. - Labs CBC & Chem 7: 03/04/21 06:51 03/04/21 06:51 Labs: Abnormal Lab Results - Last 24 Hours (Table) 03/03/21 03/04/21 03/04/21 Range/Units 21:45 06:51 06:51 RBC 3.24 L (4.30-5.90) m/uL Hgb 10.5 L (13.0-17.5) gm/dL Hct 31.1 L (39.0-53.0) % Sodium 133 L (135-145) mmol/L BUN/Creatinine Ratio 26.67 H (12.00-20.00) Ratio Glucose 159 H (70-110) mg/dL POC Glucose (mg/dL) 202 H (75-99) mg/dL Calcium 8.4 L (8.7-10.3) mg/dL 03/04/21 03/04/21 Range/Units 07:31 12:08 RBC (4.30-5.90) m/uL Hgb (13.0-17.5) gm/dL Hct (39.0-53.0) % Sodium (135-145) mmol/L BUN/Creatinine Ratio (12.00-20.00) Ratio Glucose (70-110) mg/dL POC Glucose (mg/dL) 147 H 162 H (75-99) mg/dL Calcium (8.7-10.3) mg/dL Assessment and Plan Assessment: -Preoperative clearance for non-displaced right intertrochanteric fracture: Patient is low to intermediate risk for surgery since the surgery improves the functionality patient should go for surgery same thing was informed to the patient. Cardiology evaluated the patient and patient underwent 2-D echo as mentioned previously and risks versus benefits were explained to the patient and patient is tentatively scheduled for surgery with Dr. Tanner in the morning. C ardiology will continue to follow. -Lightheadedness near-syncope: Secondary to intravascular depletion from dehydration, IV fluids currently on hold and will monitor closely and also monitor for postop hypotension after surgery -Hypovolemic hyponatremia with a component of pseudohypernatremia from hyperglycemia -Severe rheumatoid arthritis -Osteoarthritis -Type 2 diabetes mellitus with uncontrolled elevated blood sugars patient was started on long-acting insulin as well as siding scale insulin hold off on oral hypoglycemic agents. In October Accu-Cheks before meals and at bedtime -DVT prophylaxis with Lovenox Plan: Patient has been seen and evaluated by cardiology and given his moderate risks benefits versus risks were explained and patient has been cleared medically and will proceed with right hip surgery with Dr. Tanner tomorrow. Will continue to monitor closely and repeat labs along with monitoring vitals and Accu-Cheks. Thank you for this consultation.
[2021-03-04 17:37] LABS: Glucose,Whole Blood 165 mg/dL (75-99)
[2021-03-04 18:30] LABS: Hemoglobin A1C 6.8 % (4.0-6.0)
[2021-03-04 20:27] LABS: Glucose,Whole Blood 142 mg/dL (75-99)
[2021-03-04] MEDS: DOXAZOSIN 4 MG TAB PO SCH (21:57)
[2021-03-04] MEDS: INSULIN DETEMIR (LEVEMIR) 100 UNIT/ML SYR SQ SCH (21:59)
[2021-03-05] MEDS: SODIUM CHLORIDE 0.9% 1,000 ML IV SCH ×4 (03:57→18:07)
[2021-03-05 07:17] LABS: Glucose,Whole Blood 60 mg/dL (75-99)
[2021-03-05] MEDS ORDERED: DEXTROSE 50% SYRINGE 50 ML IVP ONE (07:21)
[2021-03-05 07:44] LABS: Glucose,Whole Blood 174 mg/dL (75-99)
[2021-03-05] MEDS: INSULIN ASPART (NovoLOG) 100 UNIT/ML VIAL SQ SCH ×4 (07:46→21:05)
[2021-03-05] MEDS: ENOXAPARIN 40 MG/0.4 ML SYRINGE SQ SCH (08:10)
[2021-03-05] MEDS: HYDROmorphone 0.5 MG/0.5 ML SYRINGE IVP PRN ×6 (08:12→22:30)
[2021-03-05] MEDS: FAMOTIDINE 20 MG TAB PO SCH ×2 (08:13→20:29)
[2021-03-05] MEDS: amLODIPine 5 MG TAB PO SCH (08:13)
[2021-03-05 12:28] LABS: Glucose,Whole Blood 116 mg/dL (75-99)
[2021-03-05] MEDS ORDERED: ONDANSETRON 4 MG/2 ML VIAL IVP ONE (13:03)
[2021-03-05] MEDS ORDERED: DEXAMETHASONE SOD PHOSPHATE 4 MG/ML 1 ML VIAL IV ONE (13:03)
[2021-03-05 13:22] LABS: Basophils % (A) 1 %; Eosinophils # (A) 0.1 k/uL (0-0.7); Eosinophils % (A) 2 %; HCT 31.6 % (39.0-53.0); HGB 10.6 gm/dL (13.0-17.5); Lymphocytes # (A) 0.7 k/uL (1.0-4.8); Lymphocytes % (A) 11 %; MCHC 33.7 g/dL (31.0-37.0); MCV 97.8 fL (80.0-100.0); Mean Platelet Volume 7.4; Monocytes # (A) 0.5 k/uL (0-1.0); Monocytes % (A) 7 %; Neutrophils # (A) 5.4 k/uL (1.3-7.7); Neutrophils % (A) 79 %; Platelet Count 214 k/uL (150-450); RBC 3.23 m/uL (4.30-5.90); RDW 12.9 % (11.5-15.5); WBC 6.9 k/uL (3.8-10.6)
[2021-03-05 13:33] LABS: African American GFR (CKD) >90 (>60 ml/min/1.73 sqM); Anion Gap 3 mmol/L; Blood Urea Nitrogen 18 mg/dL (9-20); Calcium 8.5 mg/dL (8.4-10.2); Carbon Dioxide 25 mmol/L (22-30); Chloride 105 mmol/L (98-107); Glucose 95 mg/dL (74-99); Non-African American GFR(CKD) >90 (>60 ml/min/1.73 sqM); Potassium 4.2 mmol/L (3.5-5.1); Sodium 133 mmol/L (137-145)
[2021-03-05] MEDS ORDERED: ROCURONIUM 10 MG/ML (5 ML VIAL) IV ONE (13:39)
[2021-03-05] MEDS ORDERED: GLYCOPYRROLATE 0.2 MG/ML 2 ML VIAL ONE (13:39)
[2021-03-05] MEDS ORDERED: NEOSTIGMINE 1 MG/ML 10 ML VIAL ONE (13:39)
[2021-03-05] MEDS ORDERED: ceFAZolin 1,000 MG VIAL ONE (13:39)
[2021-03-05] MEDS ORDERED: LIDOCAINE 1% INJ 10MG/ML (20 ML MDV) ONE (13:39)
[2021-03-05] MEDS ORDERED: SUCCINYLCHOLINE CHLORIDE 100 MG/5 ML SYR IV ONE (13:39)
[2021-03-05] MEDS ORDERED: fentaNYL (PF) 50 MCG/ML 2 ML AMP ONE (13:39)
[2021-03-05] MEDS ORDERED: SODIUM CHLORIDE 0.9% 100 ML BAG ONE (13:39)
[2021-03-05] MEDS ORDERED: ETOMIDATE 2 MG/ML 10 ML VIAL ONE (13:39)
[2021-03-05] MEDS: LACTATED RINGERS 1,000 ML IV SCH ×2 (13:40→16:11)
--- NOTE | 2021-03-05 14:15 | P.PN ---
Subjective 86-year-old male presents to emergency Department with a chief complaint of a fall. Patient reports incident occurred early this morning when he was attempting to get up after he was eating breakfast. Patient reports he stood up, felt lightheaded and went down to the ground injuring his head but denies any loss of consciousness. States she also fell on her right side of his body is complaining of pain in the right hip with limited range of motion in the right leg due to the pain. Patient had a CT of the spine and neck which showed was essentially within normal limits except for some chronic microvascular ischemic changes. Patient had a CT of the pelvis and lower extremities which showed a nondisplaced intertrochanteric fracture the right femur and significant degenerative changes in bilateral hips and there is some indeterminate right femoral inguinal fluid which appears to be hernia. Patient has mild hyponatremia denied any diarrhea usually gets constipated. Patient denied any chest pain denied denied any history of congestive heart failure. For all the patient has a significant murmur in the aortic area. Patient may have electrolysis. Patient had an EKG which showed some nonspecific ST-T wave changes in the lateral leads because of which I'm opting an echocardiogram patient functionality is is bit poor uses wheelchair, walker as well as a came for ablation. Patient does have significant osteoarthritis as well as rheumatoid arthritis. Patient is supposed to see a industry operations investigator as an outpatient. Patient denied any fever chills. 03/04/2021 Patient is seen and evaluated and is awaiting for surgical clearance of the right hip and is being followed closely by orthopedic surgery. Patient was seen and evaluated by cardiology and underwent a 2-D echo showing overall left ventricular systolic function is normal with an EF between 55 and 60% of note the LAD is severely dilated and the right atrium is mildly enlarged with some moderate aortic stenosis present along with moderate mitral and tricuspid regurgitation present along with moderate to severe pulmonary hypertension. Hemoglobin is stable at 10.5, sodium is 133 with a potassium of 4.4 current creatinine is 0.6. Continue Accu-Cheks before meals and at bedtime and continue to monitor blood sugars closely. Patient is tentatively scheduled for surgery in the morning with Dr. Tanner. 03/05/2021 Patient will undergo surgical intervention and intramedullary nailing today. Constitutional: Denied any fatigue denied any fever. Cardio vascular: denied any chest pain, palpitations Gastrointestinal denied any nausea vomiting Pulmonary: Denied any shortness of breath cough Neurologic denied any new focal deficits All inpatient medications were reviewed and appropriate changes in these medications as dictated in the interval history and assessment and plan. Objective - Vital Signs Vital signs: Vital Signs Temp 97.0 F L 03/05/21 13:23 Pulse 98 03/05/21 13:23 Resp 16 03/05/21 13:23 BP 102/75 03/05/21 13:23 Pulse Ox 98 03/05/21 13:23 Intake & Output 03/04/21 03/05/21 03/05/21 18:59 06:59 18:59 Intake Total 360 400 50 Output Total 300 Balance 360 100 50 Weight 57 kg Intake: IV 50 Oral 360 400 Output: Urine 300 Other: Voiding Method Urinal Urinal # Voids 1 - Exam GENERAL: The patient is alert and oriented x3, not in any acute distress. Well developed, well nourished. HEENT: Pupils are round and equally reacting to light. EOMI. No scleral icterus. No conjunctival pallor. Normocephalic, atraumatic. No pharyngeal erythema. No thyromegaly. CARDIOVASCULAR: S1 and S2 present. No rubs, or gallops. Systolic murmur and aortic area PULMONARY: Chest is clear to auscultation, no wheezing or crackles. ABDOMEN: Soft, nontender, nondistended, normoactive bowel sounds. No palpable organomegaly. MUSCULOSKELETAL: No joint swelling patient does have multiple deformities in the small joint in bilateral upper extremity is as well as lower extremity secondary to rheumatoid arthritis EXTREMITIES: No cyanosis, clubbing, or pedal edema. NEUROLOGICAL: Gross neurological examination did not reveal any focal deficits. SKIN: No rashes. - Labs CBC & Chem 7: 03/05/21 12:51 03/05/21 12:51 Labs: Abnormal Lab Results - Last 24 Hours (Table) 03/04/21 03/04/21 03/04/21 Range/Units 06:51 17:31 20:26 RBC (4.30-5.90) m/uL Hgb (13.0-17.5) gm/dL Hct (39.0-53.0) % Lymphocytes # (1.0-4.8) k/uL Sodium (137-145) mmol/L Creatinine (0.66-1.25) mg/dL POC Glucose (mg/dL) 165 H 142 H (75-99) mg/dL Hemoglobin A1c 6.8 H (4.0-6.0) % 03/05/21 03/05/21 03/05/21 Range/Units 07:15 07:41 12:11 RBC (4.30-5.90) m/uL Hgb (13.0-17.5) gm/dL Hct (39.0-53.0) % Lymphocytes # (1.0-4.8) k/uL Sodium (137-145) mmol/L Creatinine (0.66-1.25) mg/dL POC Glucose (mg/dL) 60 L 174 H 116 H (75-99) mg/dL Hemoglobin A1c (4.0-6.0) % 03/05/21 03/05/21 Range/Units 12:51 12:51 RBC 3.23 L (4.30-5.90) m/uL Hgb 10.6 L (13.0-17.5) gm/dL Hct 31.6 L (39.0-53.0) % Lymphocytes # 0.7 L (1.0-4.8) k/uL Sodium 133 L (137-145) mmol/L Creatinine 0.43 L (0.66-1.25) mg/dL POC Glucose (mg/dL) (75-99) mg/dL Hemoglobin A1c (4.0-6.0) % Assessment and Plan Plan: -non-displaced right intertrochanteric fracture: Patient is intermediate risk for surgery since the surgery improves the functionality patient should go for surgery same thing was informed to the patient. Patient has moderate aortic stenosis and moderate pulmonary hypertension. -Lightheadedness near-syncope: Secondary to intravascular depletion from dehydration, IV fluids currently on hold and will monitor closely and also monitor for postop hypotension after surgery. Patient's Norvasc dyspnea patient blood pressure is low today -Hypovolemic hyponatremia with a component of pseudohypernatremia from hyperglycemia, patient's sodium remained at 132 with the blood sugars improved at this time. -Severe rheumatoid arthritis -Osteoarthritis -Type 2 diabetes mellitus with uncontrolled elevated blood sugars patient was started on long-acting insulin as well as siding scale insulin hold off on oral hypoglycemic agents. -DVT prophylaxis with Lovenox
[2021-03-05] MEDS ORDERED: ceFAZolin 1,000 MG in SODIUM CHLORIDE 0.9% 1,000 ML IRRIGATION ONE (14:21)
--- NOTE | 2021-03-05 15:13 | P.OP ---
Date of Procedure: 03/05/21 Procedure(s) Performed: PREOPERATIVE DIAGNOSIS: Right hip intertrochanteric fracture. POSTOPERATIVE DIAGNOSIS: Right hip intertrochanteric fracture. OPERATION: Right hip intertrochanteric fracture closed reduction and intramedullary nailing using Synthes IT nail. VENDING MACHINE COIN COLLECTOR: None ANESTHESIA: Gen. ESTIMATED BLOOD LOSS: 100 mL. COMPLICATIONS: None OPERATIVE FINDINGS: See dictation INDICATIONS: Mr. Gamboa is an 86-year-old male with a history of right intertrochanteric fracture. The patient has aortic stenosis which prevents him from being a candidate for spinal anesthetic. The patient presents to the operating room today for closed reduction and intramedullary nailing. I discussed the risks of surgery in detail with him and his daughter as being inclusive of but not limited to: Bleeding, infection, scarring, discomfort, blood vessel and/or nerve damage, need for further surgery, malunion, nonunion, gait disturbance including persistent or permanent limp, limb length inequality, arthritis, hardware failure, blood clot, pulmonary embolism, , and other risks. The consent form has been signed. PROCEDURE: After appropriate consent was obtained, the patient was taken to the operating room and placed in supine position. General anesthetic was administered and after confirmation of adequate anesthesia, the patient was carefully placed in the supine position on the operating room table in the fracture table. The patient was placed up against a well-padded peroneal post. Care was taken to make sure about that all pressure points were adequately padded. The affected leg was placed in boot traction and the unaffected leg was placed in a well leg nugent. Using gentle longitudinal distraction as well as adduction and internal rotation, the fracture was reduced as assessed by AP and lateral C-arm imaging. Once a satisfactory reduction had been obtained, the thigh was prepped and draped in the usual aseptic fashion using ChloraPrep. Ioban drape was used for the case and the patient received intravenous antibiotics prior to incision. Timeout was called, confirming patient identity, side, procedure, and administration of antibiotics. The incision was then created with a #10 blade just proximal to the greater trochanter laterally. It was carried down through skin into the subcutaneous tissues and through fascia. Hemostasis was obtained using electrocautery. The tip of the greater trochanter was palpated and a guide pin was placed at the tip and directed into the femoral shaft as assessed with C-arm imaging. Once optimal pin position had been obtained, a 17 mm reamer was used over the guide pin to create a path for the IT nail. IT nail selected was assembled to the insertion jig on the back table and bushings were checked for accuracy. The nail was then inserted using gentle mallet taps until it was fully deployed. The amount of rotation of the implant was assessed based on the amount of anteversion of the femoral neck. This was rotated to match the patient's femoral neck anteversion and the helical blade guide was placed through the insertion jig and through an incision on the lateral side of the thigh more distal than the first. Once this guide was placed against the lateral cortex of the femur, a guide pin was drilled into the central region of the femoral head and neck as based on AP and lateral C-arm imaging. Once optimal pin position had been obtained, the guidewire was measured and appropriately sized helical blade was selected. The path for the helical blade was prepared using a tapered reamer. The helical blade was then inserted using gentle mallet taps along the guidewire until it was fully deployed. There was no displacement of the fracture during this step. The anti-rotation screw was locked down and the insertion apparatus for the helical blade was removed. The guide pin was then removed. Traction was then removed from the leg and the distal interlock was placed through the jig using standard technique. Finally, the insertion jig for the nail was removed and final C-arm images were taken and saved in both AP and lateral planes. The final x-rays showed satisfactory positioning of the implant and good reduction of the fracture. The top of the nail was plugged with a small quantity of bone wax and the incisions were then thoroughly irrigated with normal saline. Final hemostasis was obtained using electrocautery and closure of the fascia was performed using 0-Vicryl suture. 2-0 Vicryl suture was used in the subcutaneous tissues and standard skin closure was performed. Sterile dressing was then applied and the patient was carefully removed from the fracture table frame and placed onto the stretcher. The patient tolerated the procedure well. There were no complications and above noted blood loss. The patient was then subsequently transferred to recovery room in stable condition. Sponge and needle counts were correct.
--- NOTE | 2021-03-05 15:16 | XR ---
EXAMINATION TYPE: XR Hip Complete RT, FL guidance operating room DATE OF EXAM: 03/05/2021 COMPARISON: NONE HISTORY: Fracture Fluoroscopy support supplied to the referring clinician. See dictated report from orthopedic surgery , 55 seconds fluoroscopy time supplied to the referring clinician, 2 intraoperative C-arm images docu ment the procedure
[2021-03-05] MEDS ORDERED: NALOXONE 0.4 MG/ML 1 ML VIAL IV PRN (15:29)
[2021-03-05] MEDS ORDERED: HYDROmorphone 0.5 MG/0.5 ML SYRINGE IVP PRN ×2 (15:29)
[2021-03-05] MEDS ORDERED: HYDROcodone/APAP 5-325MG 1 EACH TAB PO PRN (15:29)
[2021-03-05] MEDS ORDERED: MAGNESIUM HYDROXIDE 2,400 MG/10 ML CUP PO PRN (15:29)
[2021-03-05 16:34] LABS: Basophils # (A) 0.1 k/uL (0-0.2); Basophils % (A) 1 %; Eosinophils # (A) 0.2 k/uL (0-0.7); Eosinophils % (A) 1 %; HCT 33.7 % (39.0-53.0); HGB 11.5 gm/dL (13.0-17.5); Lymphocytes # (A) 0.4 k/uL (1.0-4.8); Lymphocytes % (A) 3 %; MCH 33.2 pg (25.0-35.0); MCV 97.8 fL (80.0-100.0); Mean Platelet Volume 7.4; Monocytes # (A) 0.4 k/uL (0-1.0); Monocytes % (A) 3 %; Neutrophils # (A) 12.8 k/uL (1.3-7.7); Neutrophils % (A) 92 %; Platelet Count 212 k/uL (150-450); RBC 3.45 m/uL (4.30-5.90); RDW 12.9 % (11.5-15.5)
[2021-03-05 17:06] LABS: Glucose,Whole Blood 127 mg/dL (75-99)
[2021-03-05] MEDS: ASPIRIN 81 MG PO SCH (20:28)
[2021-03-05] MEDS: SENNOSIDES-DOCUSATE SODIUM 1 EACH TAB PO SCH (20:28)
[2021-03-05] MEDS: DOXAZOSIN 4 MG TAB PO SCH (20:29)
[2021-03-05 20:51] LABS: Glucose,Whole Blood 158 mg/dL (75-99)
[2021-03-06] MEDS: HYDROmorphone 0.5 MG/0.5 ML SYRINGE IVP PRN ×2 (02:08→07:51)
[2021-03-06] MEDS: LACTATED RINGERS 1,000 ML IV SCH ×4 (04:17→20:20)
[2021-03-06 07:17] LABS: Glucose,Whole Blood 150 mg/dL (75-99)
[2021-03-06] MEDS: INSULIN ASPART (NovoLOG) 100 UNIT/ML VIAL SQ SCH ×4 (07:49→20:50)
[2021-03-06] MEDS: SODIUM CHLORIDE 0.9% 1,000 ML IV SCH ×4 (07:49→20:53)
[2021-03-06] MEDS: ASPIRIN 81 MG PO SCH ×2 (07:50→20:19)
[2021-03-06] MEDS: ENOXAPARIN 40 MG/0.4 ML SYRINGE SQ SCH (07:50)
[2021-03-06] MEDS: FAMOTIDINE 20 MG TAB PO SCH ×2 (07:50→20:50)
--- NOTE | 2021-03-06 08:56 | P.PN ---
Subjective Progress Note Date: 03/06/21 Principal diagnosis: Intertrochanteric fracture right hip. Status post closed reduction insertion intertrochanteric nail right hip. This is an 86-year-old male who is postoperative day #1 status post close reduction with insertion intertrochanteric nail of the right hip. He is stable from an orthopedic standpoint. He has no new complaints or concerns today. Vital signs are stable. Objective - Vital Signs Vital signs: Vital Signs Temp 98.1 F 03/06/21 05:00 Pulse 63 03/06/21 05:00 Resp 20 03/06/21 05:00 BP 135/62 03/06/21 05:00 Pulse Ox 99 03/06/21 05:00 Intake & Output 03/05/21 03/06/21 03/06/21 18:59 06:59 18:59 Intake Total 601 100 Output Total 100 Balance 501 100 Intake: IV 351 Intake, IV Titration 250 Amount Lactated Ringers 1,000 ml 200 @ 100 mls/hr IV .Q10H [facility] Rx#:[id number] ceFAZolin 2 gm In Sodium 50 Chloride 0.9% 50 ml @ 100 mls/hr IVPB Q8H MARIUM Rx#: [id number] Oral 100 Output: Estimated Blood Loss 100 Other: Voiding Method Urinal # Voids 3 - Exam This is a pleasant 78-year-old male in no acute distress. He is alert and oriented 3. Exam of the right hip reveals that his dressing is clean, dry and intact. He has full foot and ankle motion without difficulty or pain. Neurovascular status to the lower extremity is intact - Labs CBC & Chem 7: 03/05/21 15:51 03/05/21 12:51 Labs: Abnormal Lab Results - Last 24 Hours (Table) 03/05/21 03/05/21 03/05/21 Range/Units 12:11 12:51 12:51 WBC (3.8-10.6) k/uL RBC 3.23 L (4.30-5.90) m/uL Hgb 10.6 L (13.0-17.5) gm/dL Hct 31.6 L (39.0-53.0) % Neutrophils # (1.3-7.7) k/uL Lymphocytes # 0.7 L (1.0-4.8) k/uL Sodium 133 L (137-145) mmol/L Creatinine 0.43 L (0.66-1.25) mg/dL POC Glucose (mg/dL) 116 H (75-99) mg/dL 03/05/21 03/05/21 03/05/21 Range/Units 15:51 17:00 20:50 WBC 14.0 H (3.8-10.6) k/uL RBC 3.45 L (4.30-5.90) m/uL Hgb 11.5 L (13.0-17.5) gm/dL Hct 33.7 L (39.0-53.0) % Neutrophils # 12.8 H (1.3-7.7) k/uL Lymphocytes # 0.4 L (1.0-4.8) k/uL Sodium (137-145) mmol/L Creatinine (0.66-1.25) mg/dL POC Glucose (mg/dL) 127 H 158 H (75-99) mg/dL 03/06/21 Range/Units 07:11 WBC (3.8-10.6) k/uL RBC (4.30-5.90) m/uL Hgb (13.0-17.5) gm/dL Hct (39.0-53.0) % Neutrophils # (1.3-7.7) k/uL Lymphocytes # (1.0-4.8) k/uL Sodium (137-145) mmol/L Creatinine (0.66-1.25) mg/dL POC Glucose (mg/dL) 150 H (75-99) mg/dL Assessment and Plan (1) Fall Current Visit: Yes Status: Acute Code(s): W19.XXXA - UNSPECIFIED FALL, INITIAL ENCOUNTER SNOMED Code(s): 5215848 (2) Injury of right hip Current Visit: Yes Status: Acute Code(s): S79.911A - UNSPECIFIED INJURY OF R IGHT HIP, INITIAL ENCOUNTER SNOMED Code(s): 558546140 (3) Intertrochanteric fracture of right femur Current Visit: Yes Status: Acute Code(s): S72.141A - DISPLACED INTERTROCHANT VICENTA FRACTURE OF RIGHT FEMUR, INIT SNOMED Code(s): 900888769 Plan: The clinical findings are discussed with the patient. He will be evaluated by physical therapy today. He is planning discharge to inpatient rehab when cleared medically. I anticipate discharge tomorrow.
[2021-03-06 11:45] LABS: Glucose,Whole Blood 162 mg/dL (75-99)
[2021-03-06] MEDS: METOPROLOL SUCCINATE (ER) 25 MG TAB.ER.24H PO SCH (11:49)
--- NOTE | 2021-03-06 11:59 | P.PN ---
Subjective HISTORY OF PRESENTING ILLNESS This is a pleasant 86-year-old male past medical history significant for hypertension, diabetes mellitus, skin cancer and gastroesophageal reflux disease. He denies prior history of coronary artery disease and does not follow regularly with a airline operations agent. We have been asked to see in consultation for preoperative evaluation. He presented to the hospital yesterday after suffering a fall at home with verbalized right hip pain. He states he was getting up after eating breakfast and he uses a walker. He was walking to the kitchen when he's became acutely lightheaded and weak and fell. He denies syncope. He had no chest pain or shortness of breath. He states on a regular basis he does not have symptoms of exertional chest pain. At times he feels short of breath with exertion. 03/06/2021 Patient is postoperative day #1 for closed reduction and IM nailing of the right intertrochanteric fracture. He is seen and examined sitting up in bed in no acute distress. He has no symptoms of chest pain, shortness of breath, dizziness or palpitations. Blood pressure 135/62 heart rate 63 afebrile ma intaining oxygen saturation on nasal cannula. Currently maintained on aspirin 81 mg twice a day per orthopedics. He will start physical therapy today with likely discharge to rehab tomorrow. PHYSICAL EXAMINATION CONSTITUTIONAL: No apparent distress. Frail. HEENT: Head is normocephalic. Pupils are equal, round. Sclerae anicteric. Mucous membranes of the mouth are moist. No JVD. No carotid bruit. CHEST EXAMINATION: Lungs are clear to auscultation. No chest wall tenderness is noted on palpation or with deep breathing. HEART EXAMINATION: Regular rate and rhythm. S1, S2 heard. Systolic ejection murmur at the base, no gallops or rub. EXTREMITIES: 2+ peripheral pulses, no lower extremity edema and no calf tenderness. ASSESSMENT Fall, no syncope Right hip fracture Aortic stenosis Mitral regurgitation Hypertension Diabetes mellitus PLAN Initiate Toprol 25 mg daily. Clinically stable from a cardiac perspective. Follow-up in the office with Dr. Galindo upon discharge. We will follow along as needed, please call with further questions or concerns. Nurse Practitioner note has been reviewed, I agree with a documented findings and plan of care. Patient was seen and examined. Objective - Vital Signs Vital signs: Vital Signs Temp 98.1 F 03/06/21 05:00 Pulse 63 03/06/21 05:00 Resp 20 03/06/21 05:00 BP 135/62 03/06/21 05:00 Pulse Ox 99 03/06/21 05:00 Intake & Output 03/05/21 03/06/21 03/06/21 18:59 06:59 18:59 Intake Total 601 100 Output Total 100 Balance 501 100 Intake: IV 351 Intake, IV Titration 250 Amount Lactated Ringers 1,000 ml 200 @ 100 mls/hr IV .Q10H [facility] Rx#:[id number] ceFAZolin 2 gm In Sodium 50 Chloride 0.9% 50 ml @ 100 mls/hr IVPB Q8H [facility]UM Rx#: [id number] Oral 100 Output: Estimated Blood Loss 100 Other: Voiding Method Urinal # Voids 3 - Labs CBC & Chem 7: 03/05/21 15:51 03/05/21 12:51 Labs: Abnormal Lab Results - Last 24 Hours (Table) 03/05/21 03/05/21 03/05/21 Range/Units 12:11 12:51 12:51 WBC (3.8-10.6) k/uL RBC 3.23 L (4.30-5.90) m/uL Hgb 10.6 L (13.0-17.5) gm/dL Hct 31.6 L (39.0-53.0) % Neutrophils # (1.3-7.7) k/uL Lymphocytes # 0.7 L (1.0-4.8) k/uL Sodium 133 L (137-145) mmol/L Creatinine 0.43 L (0.66-1.25) mg/dL POC Glucose (mg/dL) 116 H (75-99) mg/dL 03/05/21 03/05/21 03/05/21 Range/Units 15:51 17:00 20:50 WBC 14.0 H (3.8-10.6) k/uL RBC 3.45 L (4.30-5.90) m/uL Hgb 11.5 L (13.0-17.5) gm/dL Hct 33.7 L (39.0-53.0) % Neutrophils # 12.8 H (1.3-7.7) k/uL Lymphocytes # 0.4 L (1.0-4.8) k/uL Sodium (137-145) mmol/L Creatinine (0.66-1.25) mg/dL POC Glucose (mg/dL) 127 H 158 H (75-99) mg/dL 03/06/21 Range/Units 07:11 WBC (3.8-10.6) k/uL RBC (4.30-5.90) m/uL Hgb (13.0-17.5) gm/dL Hct (39.0-53.0) % Neutrophils # (1.3-7.7) k/uL Lymphocytes # (1.0-4.8) k/uL Sodium (137-145) mmol/L Creatinine (0.66-1.25) mg/dL POC Glucose (mg/dL) 150 H (75-99) mg/dL
--- NOTE | 2021-03-06 14:29 | P.PN ---
Subjective 86-year-old male presents to emergency Department with a chief complaint of a fall. Patient reports incident occurred early this morning when he was attempting to get up after he was eating breakfast. Patient reports he stood up, felt lightheaded and went down to the ground injuring his head but denies any loss of consciousness. States she also fell on her right side of his body is complaining of pain in the right hip with limited range of motion in the right leg due to the pain. Patient had a CT of the spine and neck which showed was essentially within normal limits except for some chronic microvascular ischemic changes. Patient had a CT of the pelvis and lower extremities which showed a nondisplaced intertrochanteric fracture the right femur and significant degenerative changes in bilateral hips and there is some indeterminate right femoral inguinal fluid which appears to be hernia. Patient has mild hyponatremia denied any diarrhea usually gets constipated. Patient denied any chest pain denied denied any history of congestive heart failure. For all the patient has a significant murmur in the aortic area. Patient may have electrolysis. Patient had an EKG which showed some nonspecific ST-T wave changes in the lateral leads because of which I'm opting an echocardiogram patient functionality is is bit poor uses wheelchair, walker as well as a came for ablation. Patient does have significant osteoarthritis as well as rheumatoid arthritis. Patient is supposed to see a endoscopy specialty technician as an outpatient. Patient denied any fever chills. 03/04/2021 Patient is seen and evaluated and is awaiting for surgical clearance of the right hip and is being followed closely by orthopedic surgery. Patient was seen and evaluated by cardiology and underwent a 2-D echo showing overall left ventricular systolic function is normal with an EF between 55 and 60% of note the LAD is severely dilated and the right atrium is mildly enlarged with some moderate aortic stenosis present along with moderate mitral and tricuspid regurgitation present along with moderate to severe pulmonary hypertension. Hemoglobin is stable at 10.5, sodium is 133 with a potassium of 4.4 current creatinine is 0.6. Continue Accu-Cheks before meals and at bedtime and continue to monitor blood sugars closely. Patient is tentatively scheduled for surgery in the morning with Dr. Tanner. 03/05/2021 Patient will undergo surgical intervention and intramedullary nailing today. March 23 Patient had closed reduction and intramedullary nailing of the right intertrochanteric fracture patient the pain is better controlled at this time did not pass gas yet patient most probably will be discharged to subacute rehabilitation tomorrow. Constitutional: Denied any fatigue denied any fever. Cardio vascular: denied any chest pain, palpitations Gastrointestinal denied any nausea vomiting Pulmonary: Denied any shortness of breath cough Neurologic denied any new focal deficits All inpatient medications were reviewed and appropriate changes in these med ications as dictated in the interval history and assessment and plan. Objective - Vital Signs Vital signs: Vital Signs Temp 98 F 03/06/21 12:01 Pulse 76 03/06/21 12:01 Resp 18 03/06/21 12:01 BP 107/63 03/06/21 12:01 Pulse Ox 98 03/06/21 12:01 Intake & Output 03/05/21 03/06/21 03/06/21 18:59 06:59 18:59 Intake Total 601 100 Output Total 100 Balance 501 100 Intake: IV 351 Intake, IV Titration 250 Amount Lactated Ringers 1,000 ml 200 @ 100 mls/hr IV .Q10H [facility] Rx#:[id number] ceFAZolin 2 gm In Sodium 50 Chloride 0.9% 50 ml @ 100 mls/hr IVPB Q8H [facility] Rx#: [id number] Oral 100 Output: Estimated Blood Loss 100 Other: Voiding Method Urinal # Voids 3 - Exam GENERAL: The patient is alert and oriented x3, not in any acute distress. Well developed, well nourished. HEENT: Pupils are round and equally reacting to light. EOMI. No scleral icterus. No conjunctival pallor. Normocephalic, atraumatic. No pharyngeal erythema. No thyromegaly. CARDIOVASCULAR: S1 and S2 present. No rubs, or gallops. Systolic murmur and aortic area PULMONARY: Chest is clear to auscultation, no wheezing or crackles. ABDOMEN: Soft, nontender, nondistended, normoactive bowel sounds. No palpable organomegaly. MUSCULOSKELETAL: No joint swelling patient does have multiple deformities in the small joint in bilateral upper extremity is as well as lower extremity secondary to rheumatoid arthritis EXTREMITIES: No cyanosis, clubbing, or pedal edema. NEUROLOGICAL: Gross neurological examination did not reveal any focal deficits. SKIN: No rashes. - Labs CBC & Chem 7: 03/05/21 15:51 03/05/21 12:51 Labs: Abnormal Lab Results - Last 24 Hours (Table) 03/05/21 03/05/21 03/05/21 Range/Units 15:51 17:00 20:50 WBC 14.0 H (3.8-10.6) k/uL RBC 3.45 L (4.30-5.90) m/uL Hgb 11.5 L (13.0-17.5) gm/dL Hct 33.7 L (39.0-53.0) % Neutrophils # 12.8 H (1.3-7.7) k/uL Lymphocytes # 0.4 L (1.0-4.8) k/uL POC Glucose (mg/dL) 127 H 158 H (75-99) mg/dL 03/06/21 03/06/21 Range/Units 07:11 11:39 WBC (3.8-10.6) k/uL RBC (4.30-5.90) m/uL Hgb (13.0-17.5) gm/dL Hct (39.0-53.0) % Neutrophils # (1.3-7.7) k/uL Lymphocytes # (1.0-4.8) k/uL POC Glucose (mg/dL) 150 H 162 H (75-99) mg/dL Assessment and Plan Plan: -non-displaced right intertrochanteric fracture: Patient had a intramedullary nailing and closed reduction. Patient has moderate aortic stenosis and moderate pulmonary hypertension. -Lightheadedness near-syncope: Secondary to intravascular depletion . Patient has some perioperative hypotension . -Hypovolemic hyponatremia with a component of pseudohypernatremia from hyperglycemia, hyperglycemia improved but sodium remained at 133 -Severe rheumatoid arthritis -Osteoarthritis -Type 2 diabetes mellitus with uncontrolled elevated blood sugars patient was started on long-acting insulin as well as siding scale insulin hold off on oral hypoglycemic agents. Blood sugars are fairly well controlled -DVT prophylaxis with Lovenox
[2021-03-06 17:12] LABS: Glucose,Whole Blood 244 mg/dL (75-99)
[2021-03-06] MEDS: traMADol 50 MG TAB PO PRN (18:02)
[2021-03-06 20:34] LABS: Glucose,Whole Blood 240 mg/dL (75-99)
[2021-03-06] MEDS: DOXAZOSIN 4 MG TAB PO SCH (20:50)
[2021-03-06] MEDS: SENNOSIDES-DOCUSATE SODIUM 1 EACH TAB PO SCH (20:50)
[2021-03-07] MEDS: traMADol 50 MG TAB PO PRN ×2 (04:14→12:38)
[2021-03-07] MEDS: LACTATED RINGERS 1,000 ML IV SCH ×2 (07:20→07:21)
[2021-03-07] MEDS: SODIUM CHLORIDE 0.9% 1,000 ML IV SCH (07:21)
[2021-03-07 07:36] LABS: Glucose,Whole Blood 160 mg/dL (75-99)
[2021-03-07] MEDS: METOPROLOL SUCCINATE (ER) 25 MG TAB.ER.24H PO SCH (07:49)
[2021-03-07] MEDS: FAMOTIDINE 20 MG TAB PO SCH (07:49)
[2021-03-07] MEDS: ASPIRIN 81 MG PO SCH ×2 (07:49→08:51)
[2021-03-07] MEDS: ENOXAPARIN 40 MG/0.4 ML SYRINGE SQ SCH (07:49)
--- NOTE | 2021-03-07 08:02 | P.DS ---
Providers Date of admission: 03/03/21 17:07 Expected date of discharge: 03/07/21 Attending physician: Austin Tanner Consults: 03/03/21 17:08 Consult Physician Routine Consulting Provider: Pawel Vazquez Consult Reason/Comments: medical care Do you want consulting provider notified?: Yes 03/03/21 17:38 Consult Physician Routine Consulting Provider: Amos Tamayo Consult Reason/Comments: Pre-op clearance Do you want consulting provider notified?: Yes Primary care physician: [facility] Clinic - Discharge Diagnosis(es) (1) Fall Current Visit: Yes Status: Acute (2) Injury of right hip Current Visit: Yes Status: Acute (3) Intertrochanteric fracture of right femur Current Visit: Yes Status: Acute Hospital Course: This is an 86-year-old gentleman who presents to the emergency department on 03/03/2021 with complaint of right hip pain. He reportedly went to get up from his chair and felt dizzy, causing him to fall to the ground. He states that he did hit his head on the floor when he fell. Upon arrival to the emergency department he was evaluated and had CT of the head and neck which showed no acute abnormalities other than age-related vascular changes. CT of the pelvis reveals a nondisplaced intertrochanteric fracture of the right hip. He is admitted to our service for surgical intervention and care. After discussion and consideration the patient elects to proceed with closed reduction and insertion of intertrochanteric nail of the right hip. The patient has history of rheumatoid arthritis and uses a wheeled walker for ambulation. The patient was taken to surgery on 03/05/2021 for close reduction and insertion of intertrochanteric nail of the right hip. The procedure was performed without complication or sequelae. The patient is doing fairly well postoperatively. With his rheumatoid arthritis she does have difficulty with independent ADLs and ambulation. It is recommended he go to inpatient rehab. The patient may be discharged to rehab today if cleared medically. Please see med rec for accurate list of home medications. Plan - Discharge Summary Discharge Rx Participant: Yes New Discharge Prescriptions: New HYDROcodone/APAP 5-325MG [Neely 5] 1 each PO Q6H PRN #28 tab PRN Reason: Pain Sennosides-Docusate Sodium [Senokot-S] 1 tab PO BID #60 tablet Aspirin [Adult Low Dose Aspirin EC] 81 mg PO BID #1 tablet. No Action Omeprazole 20 mg PO DAILY Meloxicam [Mobic] 15 mg PO DAILY PRN PRN Reason: Pain Ferrous Sulfate [Feosol] 325 mg PO BID traMADol HCL 50 mg PO QID PRN PRN Reason: Pain HYDROcodone/APAP 5-325MG [Neely 5-325] 1 tab PO Q6H PRN PRN Reason: Pain amLODIPine [Norvasc] 5 mg PO DAILY Terazosin [Hytrin] 5 mg PO HS Enalapril [Vasotec] 20 mg PO DAILY glipiZIDE [Glucotrol] 5 mg PO AC-BID Discharge Medication List Enalapril [Vasotec] 20 mg PO DAILY 03/03/21 [History] Ferrous Sulfate [Feosol] 325 mg PO BID 03/03/21 [History] HYDROcodone/APAP 5-325MG [Neely 5-325] 1 tab PO Q6H PRN 03/03/21 [History] Meloxicam [Mobic] 15 mg PO DAILY PRN 03/03/21 [History] Omeprazole 20 mg PO DAILY 03/03/21 [History] Terazosin [Hytrin] 5 mg PO HS 03/03/21 [History] amLODIPine [Norvasc] 5 mg PO DAILY 03/03/21 [History] glipiZIDE [Glucotrol] 5 mg PO AC-BID 03/03/21 [History] traMADol HCL 50 mg PO QID PRN 03/03/21 [History] Aspirin [Adult Low Dose Aspirin EC] 81 mg PO BID #1 tablet. 03/06/21 [Rx] HYDROcodone/APAP 5-325MG [Neely 5] 1 each PO Q6H PRN #28 tab 03/06/21 [Rx] Sennosides-Docusate Sodium [Senokot-S] 1 tab PO BID #60 tablet 03/06/21 [Rx] Follow up Appointment(s)/Referral(s): Corazon Vyas PAC [PHYSICIAN DITCHING MACHINE ENGINEER] - 3 Weeks Homero Galindo MD [STAFF PHYSICIAN] - [address] [facility],Clinic [Primary Care Provider] - 1-2 days Activity/Diet/Wound Care/Special Instructions: Toe touch wt bearing RLE w walker. May shower. Keep optifoam dressing intact 7-10 days. Discharge Disposition: TRANSFER TO SNF/ECF
[2021-03-07] MEDS: INSULIN ASPART (NovoLOG) 100 UNIT/ML VIAL SQ SCH ×2 (08:53→13:30)
[2021-03-07 12:44] LABS: Glucose,Whole Blood 227 mg/dL (75-99)
[2021-03-07 13:18] VITALS: BP 140/63; PULSE 59; RESP 18; TEMP 98.1
--- NOTE | 2021-03-07 15:45 | P.PN ---
Subjective 86-year-old male presents to emergency Department with a chief complaint of a fall. Patient reports incident occurred early this morning when he was attempting to get up after he was eating breakfast. Patient reports he stood up, felt lightheaded and went down to the ground injuring his head but denies any loss of consciousness. States she also fell on her right side of his body is complaining of pain in the right hip with limited range of motion in the right leg due to the pain. Patient had a CT of the spine and neck which showed was essentially within normal limits except for some chronic microvascular ischemic changes. Patient had a CT of the pelvis and lower extremities which showed a nondisplaced intertrochanteric fracture the right femur and significant degenerative changes in bilateral hips and there is some indeterminate right femoral inguinal fluid which appears to be hernia. Patient has mild hyponatremia denied any diarrhea usually gets constipated. Patient denied any chest pain denied denied any history of congestive heart failure. For all the patient has a significant murmur in the aortic area. Patient may have electrolysis. Patient had an EKG which showed some nonspecific ST-T wave changes in the lateral leads because of which I'm opting an echocardiogram patient functionality is is bit poor uses wheelchair, walker as well as a came for ablation. Patient does have significant osteoarthritis as well as rheumatoid arthritis. Patient is supposed to see a software applications architect as an outpatient. Patient denied any fever chills. 03/04/2021 Patient is seen and evaluated and is awaiting for surgical clearance of the right hip and is being followed closely by orthopedic surgery. Patient was seen and evaluated by cardiology and underwent a 2-D echo showing overall left ventricular systolic function is normal with an EF between 55 and 60% of note the LAD is severely dilated and the right atrium is mildly enlarged with some moderate aortic stenosis present along with moderate mitral and tricuspid regurgitation present along with moderate to severe pulmonary hypertension. Hemoglobin is stable at 10.5, sodium is 133 with a potassium of 4.4 current creatinine is 0.6. Continue Accu-Cheks before meals and at bedtime and continue to monitor blood sugars closely. Patient is tentatively scheduled for surgery in the morning with Dr. Tanner. 03/05/2021 Patient will undergo surgical intervention and intramedullary nailing today. March 23 Patient had closed reduction and intramedullary nailing of the right intertrochanteric fracture patient the pain is better controlled at this time did not pass gas yet patient most probably will be discharged to subacute rehabilitation tomorrow. 03/07/2021 Patient is clinically doing well no complaints at this time passing gas patient is being discharged today Constitutional: Denied any fatigue denied any fever. Cardio vascular: denied any chest pain, palpitations Gastrointestinal denied any nausea vomiting Pulmonary: Denied any shortness of breath cough Neurologic denied any new focal deficits All inpatient medications were reviewed and appropriate changes in these medications as dictated in the interval history and assessment and plan. Objective - Vital Signs Vital signs: Vital Signs Temp 98.1 F 03/07/21 12:42 Pulse 59 L 03/07/21 12:42 Resp 18 03/07/21 12:42 BP 140/63 03/07/21 12:42 Pulse Ox 98 03/07/21 12:42 Intake & Output 03/06/21 03/07/21 03/07/21 18:59 06:59 18:59 Intake Total 9704 581 1437 Output Total 850 Balance 1220 -730 1080 Weight 57 kg Intake: Intake, IV Titration 500 Amount Sodium Chloride 0.9% 1, 500 000 ml @ 100 mls/hr IV . Q10H [facility] Rx#:[id number] Oral 887 625 0200 Output: Urine 850 Other: Voiding Method Urinal Urinal Urinal # Voids 5 2 - Exam GENERAL: The patient is alert and oriented x3, not in any acute distress. Well developed, well nourished. HEENT: Pupils are round and equally reacting to light. EOMI. No scleral icterus. No conjunctival pallor. Normocephalic, atraumatic. No pharyngeal erythema. No thyromegaly. CARDIOVASCULAR: S1 and S2 present. No rubs, or gallops. Systolic murmur and aortic area PULMONARY: Chest is clear to auscultation, no wheezing or crackles. ABDOMEN: Soft, nontender, nondistended, normoactive bowel sounds. No palpable organomegaly. MUSCULOSKELETAL: No joint swelling patient does have multiple deformities in the small joint in bilateral upper extremity is as well as lower extremity secondary to rheumatoid arthritis EXTREMITIES: No cyanosis, clubbing, or pedal edema. NEUROLOGICAL: Gross neurological examination did not reveal any focal deficits. SKIN: No rashes. - Labs CBC & Chem 7: 03/05/21 15:51 03/05/21 12:51 Labs: Abnormal Lab Results - Last 24 Hours (Table) 03/06/21 03/06/21 03/07/21 Range/Units 17:10 20:33 07:34 POC Glucose (mg/dL) 244 H 240 H 160 H (75-99) mg/dL 03/07/21 Range/Units 12:40 POC Glucose (mg/dL) 227 H (75-99) mg/dL Assessment and Plan Plan: -non-displaced right intertrochanteric fracture: Patient had a intramedullary nailing and closed reduction. Patient has moderate aortic stenosis and moderate pulmonary hypertension. -Lightheadedness near-syncope: Secondary to intravascular depletion . Patient has some perioperative hypotension . -Hypovolemic hyponatremia with a component of pseudohypernatremia from hyperglycemia, hyperglycemia improved. -Severe rheumatoid arthritis -Osteoarthritis -Type 2 diabetes mellitus -DVT prophylaxis aspirin twice a day patient is being discharged today
== END 2021-03-07 13:56 | DRG 481 ==
LOC: EC 12:08 → 5NMEDONC 17:07
PROVIDERS: ADMIT Orthopaedic Surgery; ATTEND Orthopaedic Surgery
PROC: 0QS636Z Reposition Right Upper Femur with Intramedullary Internal Fixation Device, Percutaneous Approach (ICD-10-PCS; principal; 2021-03-05 14:00)
DX: S72.144A Nondisplaced intertrochanteric fracture of right femur, initial encounter for closed fracture (principal); E87.1 Hypo-osmolality and hyponatremia; I27.20 Pulmonary hypertension, unspecified; E11.65 Type 2 diabetes mellitus with hyperglycemia; D64.9 Anemia, unspecified; M06.9 Rheumatoid arthritis, unspecified; Z20.822 Contact with and (suspected) exposure to COVID-19; E86.0 Dehydration; E86.1 Hypovolemia; R55 Syncope and collapse; I10 Essential (primary) hypertension; I08.3 Combined rheumatic disorders of mitral, aortic and tricuspid valves; K21.9 Gastro-esophageal reflux disease without esophagitis; M19.90 Unspecified osteoarthritis, unspecified site; Z79.84 Long term (current) use of oral hypoglycemic drugs; Z79.1 Long term (current) use of non-steroidal anti-inflammatories (NSAID); Z79.899 Other long term (current) drug therapy; Z87.891 Personal history of nicotine dependence; Z90.49 Acquired absence of other specified parts of digestive tract; Z87.19 Personal history of other diseases of the digestive system; Z85.828 Personal history of other malignant neoplasm of skin; Z90.89 Acquired absence of other organs; Z98.42 Cataract extraction status, left eye; Z98.41 Cataract extraction status, right eye; Z96.1 Presence of intraocular lens; Z98.890 Other specified postprocedural states; Y92.000 Kitchen of unspecified non-institutional (private) residence as the place of occurrence of the external cause; W19.XXXA Unspecified fall, initial encounter; Z81.2 Family history of tobacco abuse and dependence; Z82.61 Family history of arthritis
CPT/HCPCS: 36415; 70450; 72125; 72192; 73502; 80048; 80053; 81003; 82009; 83036; 85025; 85027; 85610; 85730; 87635; 93005; 93306; 96361; 96374; 99285